=== PATIENT | female | born 1960 | race Caucasian/White ===

== ENCOUNTER → 2024-06-09 12:00 | Outpatient (REF) | payer OTHER, SELFPAY | LOC: HWWDC 12:00 | PROVIDERS: ATTENDING PHYSICIAN Nurse Practitioner | DX: Z12.31 Encounter for screening mammogram for malignant neoplasm of breast (principal) | CPT/HCPCS: 77063; 77067 ==

== ENCOUNTER → 2024-07-19 11:13 | Outpatient (REF) | payer OTHER, SELFPAY | LOC: HWRAD 11:13 | PROVIDERS: ATTENDING PHYSICIAN Hospitalist | DX: M79.672 Pain in left foot (principal) | CPT/HCPCS: 73630 ==

== ENCOUNTER 2024-10-15 06:20 | Day surgery (SDC) | payer OTHER, SELFPAY | END 2024-10-15 09:12 | disposition home or self-care (01) | LOC: GI 06:20 | PROVIDERS: ATTENDING PHYSICIAN Internal Medicine Gastroenterology | DX: Z12.11 Encounter for screening for malignant neoplasm of colon (principal); K64.8 Other hemorrhoids; K57.30 Diverticulosis of large intestine without perforation or abscess without bleeding; K63.5 Polyp of colon; Z86.0100 Personal history of colon polyps, unspecified | CPT/HCPCS: 45380; 88305 ==

== ENCOUNTER → 2025-04-21 13:35 | Outpatient (REF) | payer MEDICARE, OTHER, SELFPAY | LOC: HWRAD 13:35 | PROVIDERS: ATTENDING PHYSICIAN Hospitalist | DX: Z13.820 Encounter for screening for osteoporosis (principal); M81.0 Age-related osteoporosis without current pathological fracture; M16.0 Bilateral primary osteoarthritis of hip | CPT/HCPCS: 77080 ==